=== PATIENT | male | born 2000 | race Caucasian/White ===

== ENCOUNTER 2023-04-12 14:12 | Outpatient (CLI) | payer OTHER ==
--- NOTE | 2023-04-12 16:53 | MRI Report ---
PROCEDURE: BRAIN WO INDICATIONS: HEADACHE TECHNIQUE: Noncontrast axial T1 spin echo, axial T2 fast spin echo, sagittal and axial FLAIR, coronal T2 fast sp in echo, axial gradient echo, axial diffusion and ADC through the brain. COMPARISON: None. FINDINGS: Image quality: Excellent. CSF Spaces: Basal cisterns are patent. No extra-axial fluid collections. Ventricles are normal in size and shape. Brain: No intracranial masses or hemorrhage. Diaz/white matter interface is normal. Brainstem appe ars normal. Diffusion-weighted images demonstrate no acute ischemic insult. No chronic ischemic ins ults. Normal intravascular flow voids are present. Skull and face: Calvarium has normal marrow signal. Orbits appear normal. Sinuses: Sinuses demonstrate minimal scattered areas of mucosal thickening. No fluid levels. IMPRESSION: 1. No acute intracranial process. 2. Minimal scattered pansinus mucosal thickening without fluid levels. Reviewed by: Ericka Pelletier MD on 04/12/2023 4:52 PM PDT Approved by: Ericka Pelletier MD on 04/12/2023 4:52 PM PDT Station ID: [id number]
== END 2023-04-12 14:13 | disposition home or self-care (01) ==
LOC: DI 14:12
DX: R51.9 Headache, unspecified (principal)

== ENCOUNTER 2023-07-28 09:15 | Outpatient (CLI) | payer OTHER ==
--- NOTE | 2023-07-28 17:00 | XRAY Report ---
PROCEDURE: Toe(s) LT INDICATIONS: CONTUSION TO LEFT LESSER TOES TECHNIQUE: 3 views of the left toe(s) acquired. COMPARISON: None. FINDINGS: Bones: Mildly displaced and slightly angulated transverse fracture of the fifth proximal phalanx. No MTP or IP joint dislocation. No other fractures. No suspicious bony lesions. Soft tissues: No suspicious soft tissue densities. IMPRESSION: Fifth proximal phalanx fracture. Reviewed by: Radha Mansfield MD on 07/28/2023 4:59 PM PST Approved by: Radha Mansfield MD on 07/28/2023 4:59 PM PST Station ID: [id number]
== END 2023-07-28 09:30 | disposition home or self-care (01) ==
LOC: DI.N 09:15
PROVIDERS: ATTEND Nurse Practitioner
DX: S92.512A Displaced fracture of proximal phalanx of left lesser toe(s), initial encounter for closed fracture (principal)
CPT/HCPCS: 73660